=== PATIENT | male | born 1960 | race Caucasian/White ===

== ENCOUNTER 2024-04-16 11:12 | Inpatient (IN) | payer OTHER ==
[2024-04-16 11:49] VITALS: BMI 23.1
[2024-04-16] MEDS ORDERED: BENZONATATE 200 MG CAPSULE PO PRN (12:21)
[2024-04-16] MEDS ORDERED: NICOTINE POLACRILEX 2 MG LOZENGE BC PRN (12:21)
[2024-04-16] MEDS ORDERED: guaiFENesin 600 MG TABLET.ER (FP) PO PRN (12:21)
[2024-04-16] MEDS ORDERED: BENZOCAINE/MENTHOL (CHLORASEPTIC ) LOZENGE MM PRN (12:21)
[2024-04-16] MEDS ORDERED: MAGNESIUM HYDROX 2400MG/30ML ORAL SUSPENSION 30 ML CUP PO PRN (12:21)
[2024-04-16] MEDS ORDERED: P-EPHED 60MG/TRIPROLIDI 2.5MG TABLET PO PRN (12:21)
[2024-04-16] MEDS ORDERED: MAG HYDROX/AL HYDROX/SIMETH 30 ML UNIT-DOSE CUP PO PRN (12:21)
[2024-04-16] MEDS ORDERED: hydrOXYzine PAMOATE 25 MG CAPSULE (FP) PO PRN (12:21)
[2024-04-16] MEDS ORDERED: IBUPROFEN 400 MG TABLET (FP) PO PRN (12:21)
[2024-04-16] MEDS ORDERED: LOPERAMIDE HCL 2 MG CAPSULE PO PRN (12:21)
[2024-04-16] MEDS ORDERED: NICOTINE POLACRILEX 2 MG GUM BUC PRN (12:21)
[2024-04-16] MEDS ORDERED: POLYETHYLENE GLYCOL (HEALTHYLAX) 3350 17 GM PACKET PO PRN (12:21)
[2024-04-16] MEDS ORDERED: cloNIDine HCL 0.1 MG TABLET ONE ×2 (12:28→12:30)
[2024-04-16] MEDS: cloNIDine HCL 0.1 MG TABLET PO ONE (12:30)
[2024-04-16] MEDS: THIAMINE 100 MG TABLET PO SCH (22:41)
[2024-04-16] MEDS: MELATONIN 5 MG TABLETS PO SCH (22:41)
[2024-04-17] MEDS: NICOTINE 14 MG/24 HOURS TOPICAL PATCH TD SCH (09:08)
[2024-04-17] MEDS: PRENATAL VITAMINS W/ FOLIC ACID TABLET (FP) PO SCH (09:08)
[2024-04-17 12:04] LABS: HEMATOCRIT 44.2 % (35.4-49); HEMOGLOBIN 15.2 GM/dL (11.7-16.9); MCH 35.5 pg (25.7-33.7); MCHC 34.5 g/dl (32.0-35.9); MEAN PLT VOLUME 8.4 fl (7.5-11.1); PLATELET COUNT 256 10^3/uL (134-434); RDW 14.6 % (11.9-15.9); WHITE BLOOD COUNT 6.5 K/mm3 (4.0-10.0)
[2024-04-17 12:28] LABS: CREATININE 0.7 mg/dL (0.55-1.3)
[2024-04-17 12:29] LABS: BILIRUBIN,TOTAL 0.4 mg/dL (0.2-1); SYPHILIS W/ RPR CONF NON-REACTIVE (NONREACTIVE); TOT PROT 7.3 g/dl (6.4-8.2)
[2024-04-17 12:30] LABS: ALBUMIN 3.6 g/dl (3.4-5.0); CALCIUM 9.4 mg/dL (8.5-10.1)
[2024-04-17 12:32] LABS: BLOOD UREA NITROGEN 10.2 mg/dL (7-18)
[2024-04-17] MEDS: ACETAMINOPHEN 325 MG TABLET (FP) PO PRN (14:06)
[2024-04-18] MEDS ORDERED: AMMONIUM LACTATE 12% LOTION 225 GM BOTTLE TP PRN (12:11)
[2024-04-18] MEDS ORDERED: NALOXONE (NARCAN) HCL 4 MG/0.1 ML SPRAY NS PRN (12:11)
[2024-04-18] MEDS ORDERED: NALOXONE HCL 0.4 MG/ML VIAL IM PRN (12:11)
[2024-04-18] MEDS: amLODIPine BESYLATE 2.5 MG TABLET (FP) PO SCH (13:48)
[2024-04-18 15:04] LABS: URINE APPEARANCE CLEAR; URINE BILIRUBIN NEGATIVE (NEGATIVE); URINE COLOR DK YELLOW; URINE GLUCOSE (UA) NEGATIVE (NEGATIVE); URINE KETONE TRACE (NEGATIVE); URINE LEUK ESTERASE NEGATIVE (NEGATIVE); URINE NITRITE NEGATIVE (NEGATIVE); URINE PROTEIN NEGATIVE (NEGATIVE); URINE UROBILINOGEN 0.2 mg/dL (0.2-1.0)
[2024-04-19] MEDS: IBUPROFEN 600 MG TABLET (FP) PO PRN (09:51)
[2024-04-19 11:40] LABS: INR 0.95 (0.83-1.09); PROTHROMBIN TIME (PATIENT) 10.9 SEC (9.7-13.0)
[2024-04-19] MEDS: LACTULOSE 20 GM/30 ML UDC (FOR ORAL USE ONLY) PO SCH (21:31)
[2024-04-23] MEDS: propRANOLol HCL 10 MG TABLET PO SCH (12:24)
[2024-04-24] MEDS: SUVOREXANT 10 MG TABLET PO PRN (21:23)
[2024-04-25] MEDS: traZODone HCL 50 MG TABLET (FP) PO SCH (21:20)
[2024-04-26] MEDS: NALTREXONE HCL 50 MG TABLET PO ONE (11:45)
[2024-04-27] MEDS: NALTREXONE HCL 50 MG TABLET PO SCH (10:07)
[2024-04-27] MEDS: CHOLECALCIFEROL (VIT D3) 400 UNIT (10 MCG) TABLET PO SCH (10:08)
[2024-04-29] MEDS: SUMAtriptan SUCCINATE 50 MG TABLET PO PRN (10:41)
[2024-04-30 07:31] VITALS: TEMP 96.8
[2024-04-30] MEDS: NALTREXONE MICROSPHERES (VIVITROL) 380 MG DISP.SYRIN IM ONE (09:02)
[2024-04-30 10:11] VITALS: BP 123/85; PULSE 95; RESP 16
== END 2024-04-30 09:50 | disposition home or self-care (01) | DRG 772 ==
LOC: YASAS 11:12 → Y3NR 13:49 → Y3E 04-17 12:48 → Y3W 04-22 10:50 → Y3E 04-22 10:53
PROVIDERS: ADMIT Allergy & Immunology; ATTEND Psychiatry & Neurology Pain Medicine
PROC: HZ42ZZZ Group Counseling for Substance Abuse Treatment, Cognitive-Behavioral (ICD-10-PCS; principal; 2024-04-16)
DX: F10.20 Alcohol dependence, uncomplicated (principal); F17.210 Nicotine dependence, cigarettes, uncomplicated; F19.282 Other psychoactive substance dependence with psychoactive substance-induced sleep disorder; E72.20 Disorder of urea cycle metabolism, unspecified; I10 Essential (primary) hypertension; L40.8 Other psoriasis; M19.90 Unspecified osteoarthritis, unspecified site; Z99.89 Dependence on other enabling machines and devices
CPT/HCPCS: 36415; 80053; 80305; 80307; 81003; 82140; 82607; 82652; 82746; 83735; 85027; 85610; 86780; 86803; 87811; 93005; 93010; J2315